=== PATIENT | female | born 1985 | race Caucasian/White ===

== ENCOUNTER → 2017-07-04 | Outpatient (CLI) | payer BC ==
[2017-07-04 10:37] LABS: PROGESTERONE < 0.2 NG/ML
[2017-07-04 10:38] LABS: ESTRADIOL 82.5 PG/ML
== END ==
LOC: M LAB 08:13
PROVIDERS: ATTEND Obstetrics & Gynecology Reproductive Endocrinology
DX: N97.9 Female infertility, unspecified (principal)

== ENCOUNTER → 2017-07-05 | Outpatient (CLI) | payer BC ==
[2017-07-05 10:12] LABS: PROGESTERONE < 0.2 NG/ML
[2017-07-05 10:13] LABS: ESTRADIOL 95.2 PG/ML; LUTEINIZING HORMONE 2.5 mIU/mL
== END ==
LOC: M LAB 08:55
PROVIDERS: ATTEND Obstetrics & Gynecology Reproductive Endocrinology
DX: N97.9 Female infertility, unspecified (principal)

== ENCOUNTER → 2017-07-13 | Outpatient (REF) ==
[2017-07-13 10:41] LABS: ESTRADIOL 72.7 PG/ML
== END ==
LOC: M LAB REF 10:15
DX: N97.9 Female infertility, unspecified (principal)

== ENCOUNTER → 2017-07-20 | Outpatient (CLI) | payer BC ==
[2017-07-20 07:22] LABS: HCG, SERUM QUANTITATIVE < 1.0 MIU/ML
[2017-07-20 08:46] LABS: PROGESTERONE 2.6 NG/ML
== END ==
LOC: M LAB 06:25
DX: Z32.00 Encounter for pregnancy test, result unknown (principal)
CPT/HCPCS: 84702

== ENCOUNTER → 2018-07-28 | Outpatient (CLI) | payer BC ==
--- NOTE | 2018-07-28 08:01 | REP ---
Pelvic sonography: History: Infertility study. Transvaginal exam. Findings: Uterine dimensions are 7.4 x 3.3 x 4.7 cm. Endometrial stripe is 0.5. Centimeters in thickness. There are Nabothian cysts in the cervix. No focal uterine mass or free fluid is seen. The overall dimensions of the right ovary are 2.9 x 2.2 x 2.2 cm. There are 12 follicles in the right ovary ranging in size from 0.3-0.8 cm. No right ovarian follicles are seen over a centimeter in size. The left ovary measures 2.4 x 2.3 x 1.8 cm. It contains six follicles from 0.2-0.9 cm in size. No follicles are seen in the left ovary measuring more than a centimeter today. Impression: Nabothian cysts. Ovarian follicle study as above. Electronically Signed by Lisandro Sue MD 07/28/2018 07:52 A
[2018-07-28 08:12] LABS: HCG, SERUM QUANTITATIVE < 1.0 MIU/ML
[2018-07-28 10:00] LABS: PROGESTERONE 0.29 NG/ML
[2018-07-28 10:01] LABS: ESTRADIOL 42.7 PG/ML; FOLLICLE STIMULATING HORMONE 6.9 mIU/mL; LUTEINIZING HORMONE 4.2 mIU/mL
== END ==
LOC: M LAB 06:39
PROVIDERS: ATTEND Obstetrics & Gynecology Reproductive Endocrinology
DX: E28.9 Ovarian dysfunction, unspecified (principal)

== ENCOUNTER → 2018-08-02 | Outpatient (CLI) | payer BC ==
--- NOTE | 2018-08-02 08:14 | REP ---
Transvaginal pelvic sonography: History: Infertility. Findings: Uterine dimensions are normal 8.2 x 3.3 x 5.0 centimeters. It has a subseptate shape. There are multiple Nabothian cysts measuring up to 1.4 cm in diameter. The overall dimensions of the right ovary are 3.2 x 2.5 x 3.1 cm. There are three follicles in the right ovary measuring over a centimeter as follows: 1.3 x 1.1, 1.8 x 1.5, and 1.0 x 1.0 cm. In addition, the right ovary contains seven follicles ranging in size from 0.2-0.8 cm. The left ovaries dimensions are 3.4 x 2.1 x 2.3 cm. There are 10 follicles visible in the left ovary ranging in size up to 0.8 cm. No larger follicle is seen in the left ovary today. Impression: Ovarian follicle study as above. Electronically Signed by Lisandro Sue MD 08/02/2018 08:06 A
[2018-08-02 09:49] LABS: ESTRADIOL 76.1 PG/ML; LUTEINIZING HORMONE 5.2 mIU/mL; PROGESTERONE 0.23 NG/ML
== END ==
LOC: M RAD 07:08
PROVIDERS: ATTEND Obstetrics & Gynecology Reproductive Endocrinology
DX: E28.9 Ovarian dysfunction, unspecified (principal)

== ENCOUNTER → 2018-08-11 | Outpatient (CLI) | payer BC ==
[2018-08-11 08:42] LABS: THYROID STIMULATING HORMONE 1.85 uIU/ML (0.358-3.740)
[2018-08-11 10:03] LABS: ESTRADIOL 37.5 PG/ML; PROGESTERONE 13.26 NG/ML
== END ==
LOC: M LAB 07:13
PROVIDERS: ATTEND Obstetrics & Gynecology Reproductive Endocrinology
DX: E28.9 Ovarian dysfunction, unspecified (principal)

== ENCOUNTER → 2018-08-21 | Outpatient (CLI) | payer BC ==
[2018-08-21 08:32] LABS: HCG, SERUM QUANTITATIVE < 1.0 MIU/ML
[2018-08-21 09:33] LABS: PROGESTERONE 0.46 NG/ML
== END ==
LOC: M LAB 07:52
PROVIDERS: ATTEND Obstetrics & Gynecology Reproductive Endocrinology
DX: Z32.00 Encounter for pregnancy test, result unknown (principal)

== ENCOUNTER → 2018-08-22 | Outpatient (CLI) | payer BC ==
[2018-08-22 10:10] LABS: BASO # 0.1 10^3/uL (0.0-0.2); BASO % 0.8 % (0.0-1.0); EOS # 0.7 10^3/uL (0.0-0.50); EOS % 8.4 % (0.0-3.0); HEMATOCRIT 34.9 % (36.0-47.0); HEMOGLOBIN 10.2 g/dl (12.0-15.5); LYMPH # 1.9 10^3/uL (1.5-4.5); LYMPH % 22.3 % (24.0-44.0); MEAN CORPUSCULAR HEMOGLOBIN 20.6 pg (27.0-33.0); MEAN CORPUSCULAR HGB CONC 29.2 g/dl (32.0-36.5); MEAN CORPUSCULAR VOLUME 70.4 fl (80.0-96.0); MONO # 0.7 10^3/uL (0.0-0.8); MONO % 7.7 % (0.0-5.0); NEUTROPHILS # 5.2 10^3/uL (1.8-7.7); NEUTROPHILS % 60.1 % (36.0-66.0); PLATELET COUNT, AUTOMATED 292 10^3/uL (150-450); RED BLOOD COUNT 4.96 10^6/uL (4.00-5.40); WHITE BLOOD COUNT 8.7 10^3/uL (4.0-10.0)
[2018-08-22 10:33] LABS: PERCENT SATURATION 3.7 % (13.2-45.0)
[2018-08-22 11:50] LABS: TOTAL 25(OH) VITAMIN D 16.9 NG/ML (30.0-100.0)
== END ==
LOC: M LAB 08:46
PROVIDERS: ATTEND Physician Assistant
DX: Z00.00 Encounter for general adult medical examination without abnormal findings (principal)

== ENCOUNTER → 2018-08-30 | Outpatient (CLI) | payer BC ==
--- NOTE | 2018-08-30 08:28 | REP ---
Endovaginal pelvic ultrasound for ovarian follicle assessment: Right ovary: There is one follicle greater than 10 mm measuring 11.1 x 7.9. Additionally, there are 11 follicles measuring 3.1-7.4 mm. Right ovary measures 3.2 x 2.1 by 2.7 cm. Left ovary: There are three follicles greater than 10 mm measurin.7 by 15.5 mm. 17.1 x 14.1 mm. 16.6 x 12.8 mm. Additionally, there are four follicles measuring 4.3-6.3 mm. Left ovary measures 3.9 x 2.5 x 3.3 mm. The endometrial stripe has a trilaminar appearance and measures 12.5 mm thickness. The uterus is anteverted and normal size measuring 8.2 x 3.6 x 4.7 cm. A cervical Nabothian cyst is incidentally identified. Electronically Signed by Benny Flores MD 08/30/2018 08:20 A
[2018-08-30 09:15] LABS: ESTRADIOL 101.1 PG/ML; LUTEINIZING HORMONE 4.3 mIU/mL; PROGESTERONE 0.27 NG/ML
== END ==
LOC: M RAD 06:59
PROVIDERS: ATTEND Obstetrics & Gynecology Reproductive Endocrinology
DX: N85.4 Malposition of uterus (principal); N88.8 Other specified noninflammatory disorders of cervix uteri

== ENCOUNTER → 2018-09-01 | Outpatient (CLI) | payer BC ==
[2018-09-01 10:15] LABS: ESTRADIOL 254.6 PG/ML; LUTEINIZING HORMONE 8.8 mIU/mL; PROGESTERONE 0.29 NG/ML
== END ==
LOC: M LAB 07:52
PROVIDERS: ATTEND Obstetrics & Gynecology Reproductive Endocrinology
DX: E28.9 Ovarian dysfunction, unspecified (principal)

== ENCOUNTER → 2018-09-08 | Outpatient (CLI) | payer BC ==
[2018-09-08 07:32] LABS: THYROID STIMULATING HORMONE 1.49 uIU/ML (0.358-3.740)
[2018-09-08 11:03] LABS: ESTRADIOL 86.2 PG/ML; PROGESTERONE 11.33 NG/ML
== END ==
LOC: M LAB 06:21
PROVIDERS: ATTEND Obstetrics & Gynecology Reproductive Endocrinology
DX: E28.9 Ovarian dysfunction, unspecified (principal)

== ENCOUNTER → 2018-09-16 | Outpatient (CLI) | payer BC ==
[2018-09-16 09:23] LABS: HCG, SERUM QUANTITATIVE < 1.0 MIU/ML
[2018-09-16 09:57] LABS: PROGESTERONE 0.36 NG/ML
== END ==
LOC: M LAB 08:35
PROVIDERS: ATTEND Obstetrics & Gynecology Reproductive Endocrinology
DX: E28.9 Ovarian dysfunction, unspecified (principal)

== ENCOUNTER → 2019-01-16 | Outpatient (CLI) | payer BC ==
[2019-01-16 08:02] LABS: HEMATOCRIT 38.9 % (36.0-47.0); HEMOGLOBIN 11.6 g/dl (12.0-15.5); MEAN CORPUSCULAR HEMOGLOBIN 23.1 pg (27.0-33.0); MEAN CORPUSCULAR HGB CONC 29.8 g/dl (32.0-36.5); MEAN CORPUSCULAR VOLUME 77.3 fl (80.0-96.0); PLATELET COUNT, AUTOMATED 250 10^3/uL (150-450); RED BLOOD COUNT 5.03 10^6/uL (4.00-5.40); WHITE BLOOD COUNT 10.8 10^3/uL (4.0-10.0)
[2019-01-16 08:30] LABS: BLOOD UREA NITROGEN 11 MG/DL (7-18); CALCIUM LEVEL 8.9 MG/DL (8.5-10.1); CARBON DIOXIDE LEVEL 24 MEQ/L (21-32); CHLORIDE LEVEL 106 MEQ/L (98-107); CREATININE FOR GFR 1.04 MG/DL (0.55-1.30); GLOMERULAR FILTRATION RATE > 60.0 (>60); GLUCOSE, FASTING 68 MG/DL (70-100); POTASSIUM SERUM 3.7 MEQ/L (3.5-5.1); SODIUM LEVEL 139 MEQ/L (136-145)
== END ==
LOC: M LAB 07:03
PROVIDERS: ATTEND Podiatrist Foot & Ankle Surgery
DX: Z01.818 Encounter for other preprocedural examination (principal)

== ENCOUNTER → 2019-01-16 | Outpatient (CLI) | payer BC ==
[2019-01-16 08:02] LABS: BASO # 0.1 10^3/uL (0.0-0.2); BASO % 0.7 % (0.0-1.0); EOS # 0.9 10^3/uL (0.0-0.50); EOS % 8.9 % (0.0-3.0); HEMATOCRIT 38.6 % (36.0-47.0); HEMOGLOBIN 11.6 g/dl (12.0-15.5); LYMPH # 1.8 10^3/uL (1.5-4.5); LYMPH % 17.2 % (24.0-44.0); MEAN CORPUSCULAR HEMOGLOBIN 23.2 pg (27.0-33.0); MEAN CORPUSCULAR HGB CONC 30.1 g/dl (32.0-36.5); MEAN CORPUSCULAR VOLUME 77.4 fl (80.0-96.0); MONO # 0.9 10^3/uL (0.0-0.8); MONO % 8.7 % (0.0-5.0); NEUTROPHILS # 6.5 10^3/uL (1.8-7.7); NEUTROPHILS % 64.1 % (36.0-66.0); PLATELET COUNT, AUTOMATED 248 10^3/uL (150-450); RED BLOOD COUNT 4.99 10^6/uL (4.00-5.40); WHITE BLOOD COUNT 10.2 10^3/uL (4.0-10.0)
[2019-01-16 08:35] LABS: ALBUMIN 3.6 GM/DL (3.2-5.2); ALT/SGPT 22 U/L (12-78); BILIRUBIN,TOTAL 0.5 MG/DL (0.2-1.0); BLOOD UREA NITROGEN 11 MG/DL (7-18); CALCIUM LEVEL 8.9 MG/DL (8.5-10.1); CARBON DIOXIDE LEVEL 27 MEQ/L (21-32); CHLORIDE LEVEL 106 MEQ/L (98-107); CREATININE FOR GFR 1.03 MG/DL (0.55-1.30); FERRITIN 15 NG/ML (8-252); GLOMERULAR FILTRATION RATE > 60.0 (>60); GLUCOSE, FASTING 66 MG/DL (70-100); IRON (FE) 41 UG/DL (50-170); PERCENT SATURATION 8.5 % (13.2-45.0); POTASSIUM SERUM 3.8 MEQ/L (3.5-5.1); SODIUM LEVEL 139 MEQ/L (136-145); TOTAL IRON BINDING CAPACITY 484 UG/DL (250-450); TOTAL PROTEIN 7.3 GM/DL (6.4-8.2)
[2019-01-16 09:01] LABS: TOTAL 25(OH) VITAMIN D 21.6 NG/ML (30.0-100.0)
[2019-01-16 09:22] LABS: VITAMIN B12 LEVEL > 2000 PG/ML (247-911)
== END ==
LOC: M LAB 07:01
PROVIDERS: ATTEND Family Medicine
DX: E61.1 Iron deficiency (principal); D51.9 Vitamin B12 deficiency anemia, unspecified; E55.9 Vitamin D deficiency, unspecified

== ENCOUNTER 2019-06-05 08:52 | Day surgery (SDC) | payer BC ==
[~2019-06-05] VITALS: Ht 182.9 cm; Wt 126.6 kg
[~2019-06-05 08:52] MED LIST: CYAN1000VL SQ; HYDR-643 PO; IRON65TA2 PO; LR 1,000 ML IV ONE; VITA500045 PO; ceFAZolin SOD 2 GM in IV 1 EA IV ONE
[2019-06-05] MEDS ORDERED: BUPIVACAINE HCL 0.5% 30 ML VIAL As Ordered ONE (15:09)
[2019-06-05] MEDS ORDERED: dexameTHASONE 4 MG/ML 1ML VIAL (J1100) As Ordered ONE ×2 (15:09→16:30)
[2019-06-05] MEDS ORDERED: LIDOCAINE 1% MDV 20ML VIAL As Ordered ONE (15:09)
[2019-06-05] MEDS ORDERED: ONDANSETRON 4MG/2ML VIAL (J2405) As Ordered ONE (16:29)
[2019-06-05] MEDS ORDERED: LIDOCAINE 2% INJ 100 MG/5 ML SDV (FOR ANES.) As Ordered ONE (16:29)
[2019-06-05] MEDS ORDERED: PROPOFOL 500 MG/50 ML VIAL As Ordered ONE ×2 (16:30→17:17)
[2019-06-05] MEDS ORDERED: fentaNYL 100 MCG/2 ML INJECTION (J3010) As Ordered ONE (16:30)
[2019-06-05] MEDS ORDERED: MIDAZOLAM INJ 2 MG/2 ML VIAL (J2250) As Ordered ONE (16:30)
[2019-06-05] MEDS ORDERED: KETAMINE HCL 200 MG/20 ML VIAL As Ordered ONE (16:48)
[2019-06-05] MEDS ORDERED: ceFAZolin 1GM INJ (J0690 PER 500MG) As Ordered ONE (17:00)
[2019-06-05 18:30] VITALS: BP 116/64
--- NOTE | 2019-06-06 12:33 | RO ---
DATE OF PROCEDURE: 06/05/2019 PREPROCEDURE DIAGNOSIS: Left foot 4th and 5th metatarsal deformity. POSTPROCEDURE DIAGNOSIS: Left foot 4th and 5th metatarsal deformity. PROCEDURE: Left 4th and 5th metatarsal shortening osteotomy. SURGEON: Dr. Ryan Yoon CLINCHING MACHINE OPERATOR: None. ANESTHESIA: Monitored anesthesia care. Preoperative injection of 17 mL of 1:1 mixture of lidocaine plain and 0.5% Marcaine plain. ESTIMATED BLOOD LOSS Minimal. MATERIALS: Arthrex 2.5 headless screws times two, #3-0 and #4-0 Vicryl, #4-0 nylon. INJECTABLES: 7 mL of 1% lidocaine plain and 1 mL Decadron 4 mg/L. COMPLICATIONS: None. CONDITION: Stable. Isabel Chambers is a 33-year-old female who presents to [facility] with complaints of painful metatarsal deformity to her left foot. She presents today for surgical correction. The patient's site and side were identified and marked in the preoperative holding area. Consent was reviewed and obtained. All risks, complications and, alternatives to the procedure were explained to the patient in detail. All questions were answered. DESCRIPTION OF PROCEDURE: Patient was brought to the operating room and placed on the operating table in supine position. Monitored anesthesia care was delivered by the anesthesia team. Preoperative injection of 17 mL of 1:1 mixture of 1% lidocaine plain and 0.5% Marcaine plain was injected to the left foot. The left foot was prepped and draped in a normal sterile fashion. A tourniquet was applied to the left ankle inflated at 225 mmHg. A dorsal incision was drawn over the 4th and 5th metatarsal and carried through with a #15 blade. Dissection was carried down to the 4th and 5th metatarsophalangeal joints were identified. Linear capsulotomy was performed exposing the metatarsal head using a McGlamry elevator the medial, lateral and planar structures were released. Then an osteotomy was performed in the metatarsal head transposing it proximally. These were each fixated with an Arthrex 2.5 headless screw. The bone ledge was resected with rongeur and smoothed with a rasp. It was irrigated with normal saline. Capsular repair was performed with #3-0 Vicryl, subcutaneous closure with #4-0, and skin closure with #4-0 nylon. 1 mL Decadron was injected and an additional 7 mL of 1% lidocaine plain was used during the procedure. Steri-Strips were applied, tourniquet was deflated. Patient was brought to the postanesthesia care unit (PACU) with vital signs stable, neurovascular status intact. She will be partial weightbearing to the left foot. She will followup in the office in 2 days.
== END 2019-06-05 18:40 | disposition home or self-care (01) ==
LOC: M SDC 08:52
PROVIDERS: ATTEND Podiatrist Foot & Ankle Surgery
DX: M21.6X2 Other acquired deformities of left foot (principal); D64.9 Anemia, unspecified; G47.30 Sleep apnea, unspecified; F17.218 Nicotine dependence, cigarettes, with other nicotine-induced disorders; Z79.899 Other long term (current) drug therapy; Z98.84 Bariatric surgery status; Z88.2 Allergy status to sulfonamides; Z88.5 Allergy status to narcotic agent
CPT/HCPCS: 28308; 81025; 88300; C1713; J0690; J1100; J2250; J2405; J3010

== ENCOUNTER → 2020-04-22 | Outpatient (CLI) | payer BC ==
[~2020-04-22] MED LIST changes: -LR 1,000 ML IV ONE; -ceFAZolin SOD 2 GM in IV 1 EA IV ONE
--- NOTE | 2020-04-28 14:21 | REP ---
PELVIC SONOGRAPHY: HISTORY: Ovarian dysfunction. Transvaginal scanning. Fertility study. FINDINGS: Uterine dimensions are normal at 7.6 x 3.8 x 5.0cm. There are nabothian cysts in the cervix. Endometrial stripe is 0.6cm thick. No focal uterine mass is seen. No free fluid is noted in the cul-de-sac. Overall dimensions of the right ovary today are 2.8 x 1.6 x 2.3cm. There are no follicles in the right ovary measuring greater than a centimeter. There are three follicles ranging in size from 0.5-0.9cm in the right ovary. The left ovary has overall dimension of 2.7 x 1.7 x 2.0cm. There are no follicles in the left ovary measuring greater than a centimeter. There are two follicles measuring 0.5 and 0.9cm in the left ovary. IMPRESSION: Ovarian follicle study as above. MTDD
== END ==
LOC: M WHC 07:30
PROVIDERS: ATTEND Obstetrics & Gynecology Reproductive Endocrinology
DX: E28.9 Ovarian dysfunction, unspecified (principal)

== ENCOUNTER → 2020-04-22 | Outpatient (CLI) | payer BC ==
[2020-04-22 12:54] LABS: ESTRADIOL 51.9 PG/ML; FOLLICLE STIMULATING HORMONE 7.4 mIU/mL; HCG, SERUM QUANTITATIVE < 1.0 MIU/ML; LUTEINIZING HORMONE 4.2 mIU/mL; PROGESTERONE 0.21 NG/ML; THYROID STIMULATING HORMONE 0.932 uIU/ML (0.358-3.740)
== END ==
LOC: M PLALAB 08:05
PROVIDERS: ATTEND Obstetrics & Gynecology Reproductive Endocrinology
DX: E28.9 Ovarian dysfunction, unspecified (principal)

== ENCOUNTER → 2020-04-28 | Outpatient (CLI) | payer BC ==
[2020-04-28 10:42] LABS: HEMATOCRIT 37.7 % (36.0-47.0); HEMOGLOBIN 11.3 g/dl (12.0-15.5); MEAN CORPUSCULAR HEMOGLOBIN 23.1 pg (27.0-33.0); MEAN CORPUSCULAR VOLUME 76.9 fl (80.0-96.0); PLATELET COUNT, AUTOMATED 269 10^3/uL (150-450); WHITE BLOOD COUNT 6.6 10^3/uL (4.0-10.0)
[2020-04-28 10:58] LABS: ESTRADIOL 114.8 PG/ML; LUTEINIZING HORMONE 2.6 mIU/mL; PROGESTERONE 0.21 NG/ML
[2020-04-28 11:12] LABS: FERRITIN 33 NG/ML (8-252); IRON (FE) 27 UG/DL (50-170); VITAMIN B12 LEVEL 686 PG/ML (247-911)
== END ==
LOC: M PLALAB 08:09
PROVIDERS: ATTEND Internal Medicine
DX: E61.1 Iron deficiency (principal); D51.9 Vitamin B12 deficiency anemia, unspecified; E28.9 Ovarian dysfunction, unspecified

== ENCOUNTER → 2020-04-28 | Outpatient (CLI) | payer BC | LOC: M WHC 07:08 | PROVIDERS: ATTEND Obstetrics & Gynecology Reproductive Endocrinology | DX: E28.9 Ovarian dysfunction, unspecified (principal) ==

== ENCOUNTER → 2020-04-30 | Outpatient (CLI) | payer BC ==
[2020-04-30 11:13] LABS: LUTEINIZING HORMONE 2.4 mIU/mL; PROGESTERONE 0.6 NG/ML
== END ==
LOC: M PLALAB 08:52
PROVIDERS: ATTEND Obstetrics & Gynecology Reproductive Endocrinology
DX: E28.9 Ovarian dysfunction, unspecified (principal)

== ENCOUNTER → 2020-04-30 | Outpatient (CLI) | payer BC ==
--- NOTE | 2020-05-01 07:35 | REP ---
TRANSVAGINAL PELVIC ULTRASOUND CLINICAL: Follicular study. Ovarian dysfunction. TECHNIQUE: Transvaginal ultrasound examination. FINDINGS: Anteverted uterus measures 8.2 x 3.7 x 4.9 cm and again demonstrates multiple nabothian cysts measuring up to roughly 9 mm. The endometrial complex measures 9 mm thickness and demonstrates normal trilaminar appearance. No endocervical fluid is identified. Right ovary measures 3.5 x 2.3 x 3.2 cm and includes 2.0 cm follicle along with four subcentimeter follicles measuring 5-9 mm. Left ovary measures 3.0 x 2.4 x 3.2 cm and includes 1.5 cm, 1.5 cm, 1.9 cm, 1.2 cm, and 1.1 cm follicles along with single 6 mm follicle. IMPRESSION: Follicular study with uterus and ovaries as described above. PELVIC ULTRASOUND: 04/30/20. CLINICAL: Infertility. TECHNIQUE: Transabdominal pelvic ultrasound. FINDINGS: Anteverted uterus measures 8.2 x 3.7 x 4.9cm. The endometrial complex measures 12mm thickness and demonstrates normal trilaminar appearance. The right ovary measures 3.9 x 2.5 x 3.1cm (RI 0.52) and includes 23mm, 14mm, and 10mm follicles. The left ovary measures 3.7 x 2.4 x 3.2cm (RI 0.45) and includes 21mm, 13mm, 18, 16mm, 14mm, and 14mm follicles. IMPRESSION: 1. Normal appearance to the uterus. 2. Bilateral ovarian follicles as noted above. MTDD
== END ==
LOC: M WHC 08:24
PROVIDERS: ATTEND Obstetrics & Gynecology Reproductive Endocrinology
DX: E28.9 Ovarian dysfunction, unspecified (principal)

== ENCOUNTER → 2020-05-02 | Outpatient (CLI) | payer BC ==
--- NOTE | 2020-05-02 08:30 | REPVR ---
PROCEDURE INFORMATION: Exam: US Pelvis, Transvaginal Exam date and time: 05/02/2020 7:52 AM Age: 34 years old Clinical indication: Screening exam; Follicle study; Additional info: Ovarian dysfunction TECHNIQUE: Imaging protocol: Real-time transvaginal pelvic ultrasound with image documentation. Transvaginal imaging was used for better evaluation of the endometrium, adnexa, and/or cervix. COMPARISON: PELVIS NON-OB COMPLETE US 04/30/2020 8:37 AM FINDINGS: Uterus/cervix: Uterus measures 8.7 x 3.6 x 5.1 cm. No myometrial mass. Endometrium measures 1.3 cm in thickness and is unchanged with a triple line pattern. Nabothian cysts noted in the region of the cervix. Right adnexa: Right ovary measures 4.2 x 2.9 x 3.1 cm. There are 4 follicles larger than 1 cm measuring 1.1 x 0.9 cm, 2.5 x 2.1 cm, 1.6 x 1.2 cm and 1.2 x 0.9 cm. There are 5 subcentimeter follicles measuring in the 5-6 mm range. Left adnexa: Left ovary measures 5.1 x 3.1 x 4.6 cm. There are 6 follicles larger than 1 cm measuring 1.2 x 0.9 cm, 1.2 x 1.4 cm, 1.8 x 2.2 cm, 2.1 x 1.5 cm, 1.6 x 1.0 cm and 1.7 x 1.1 cm. There is 1 subcentimeter follicle measuring 5 mm. Intraperitoneal space: No free fluid. IMPRESSION: 1. Endometrium measures 1.3 cm in thickness with a triple line pattern. 2. Multiple bilateral ovarian follicles with the right ovary containing 4 follicles greater than 1 cm and the left ovary containing 6 follicles greater than 1 cm. Electronically signed by: Hung Gaviria On 05/02/2020 08:30:27 AM
[2020-05-02 09:16] LABS: LUTEINIZING HORMONE 3.5 mIU/mL; PROGESTERONE 0.51 NG/ML
== END ==
LOC: M RAD 07:29
PROVIDERS: ATTEND Obstetrics & Gynecology Reproductive Endocrinology
DX: E28.9 Ovarian dysfunction, unspecified (principal)

== ENCOUNTER → 2020-05-14 | Outpatient (CLI) | payer BC ==
[2020-05-14 11:45] LABS: ESTRADIOL 147.4 PG/ML; PROGESTERONE 16.02 NG/ML
== END ==
LOC: M LAB 08:14
PROVIDERS: ATTEND Obstetrics & Gynecology Reproductive Endocrinology
DX: E28.9 Ovarian dysfunction, unspecified (principal)

== ENCOUNTER → 2020-05-19 | Outpatient (CLI) | payer BC ==
[2020-05-19 09:33] LABS: HCG, SERUM QUANTITATIVE < 1.0 MIU/ML
[2020-05-19 10:48] LABS: PROGESTERONE 30.46 NG/ML
== END ==
LOC: M LAB 08:36
PROVIDERS: ATTEND Obstetrics & Gynecology Reproductive Endocrinology
DX: E28.9 Ovarian dysfunction, unspecified (principal)

== ENCOUNTER → 2020-05-26 | Outpatient (CLI) | payer BC ==
[2020-05-26 11:05] LABS: ESTRADIOL 51.7 PG/ML; HCG, SERUM QUANTITATIVE < 1.0 MIU/ML; LUTEINIZING HORMONE 4.8 mIU/mL; PROGESTERONE 0.37 NG/ML
== END ==
LOC: M PLALAB 08:02
PROVIDERS: ATTEND Obstetrics & Gynecology Reproductive Endocrinology
DX: E28.9 Ovarian dysfunction, unspecified (principal)

== ENCOUNTER → 2020-05-26 | Outpatient (CLI) | payer BC ==
--- NOTE | 2020-05-26 09:00 | REP ---
INDICATION: FERTILITY TREATMENTS. COMPARISON: 05/02/2020 TECHNIQUE: Transabdominal endovaginal probe pelvic ultrasound FINDINGS: Uterus: It measures 8 x 5.2 x 3.7 cm and is anteverted. With a normal endometrial stripe with a thickness of 6 mm and no fluid in the endometrial cavity or endocervical canal. Some nabothian cysts are again identified. No contour abnormality or uterine mass. Right ovary: Measures 2.5 x 2.5 x 2.3 cm. One follicle over a cm 11 x 8 mm. There are a few small subcentimeter follicles. No adjacent fluid. Left ovary: Measures 2.8 x 2 x 2 cm. Two follicles over a cm at 11 x 5 mm and 10 x 6 mm. A couple of a small subcentimeter follicles. No adjacent fluid. Doppler tracing shows resistive index 0.61 on the right and 0.50 on the left with normal color flow to both ovaries. IMPRESSION: 1. Endometrium it 6 mm thickness with no fluid in the endometrial cavity. Uterus anteverted normal in size. 2. One follicle in the right ovary over a cm 11 x 8 mm and 2 follicles in the left ovary 11 x 5 in 10 x 6 mm. No other significant finding. <Electronically signed by Cristian Sheth > 05/26/20 0856
== END ==
LOC: M WHC 08:10
PROVIDERS: ATTEND Obstetrics & Gynecology Reproductive Endocrinology
DX: E28.9 Ovarian dysfunction, unspecified (principal)

== ENCOUNTER → 2020-05-30 | Outpatient (CLI) | payer BC ==
--- NOTE | 2020-05-30 08:28 | REP ---
INDICATION: INFERTILITY TREATMENTS. COMPARISON: 05/26/2020 TECHNIQUE: Endovaginal probe pelvic ultrasound for fertility evaluation FINDINGS: The uterus is anteverted and measures 6.2 x 3.9 x 4.7 cm. There are nabothian cysts in the cervix. Today's study there is some fluid in the endometrial cavity. The anterior endometrial wall is 3.1 mm thick in the posterior wall 3 mm thick. Uterine contour and echogenicity were normal. No mass. No free fluid in the cul-de-sac. The right ovary is 3.4 x 2 x 3.1 cm there is a follicle at 10 x 9 mm size. There are additional 7 follicles in the 5-9 mm range. The left ovary is 3.2 x 2.2 x 2 cm. There are 2 follicles over a cm at 1.4 x 1.4 cm and 1.2 x 0.8 cm. An additional 4 follicles are seen in the 5-9 mm range. IMPRESSION: 1. Small amount of fluid in the endometrial cavity as described. Endometrial thickness 3.1 mm anteriorly, 3 mm posteriorly. 2. Right ovary with 1 follicle at 1 x 0.9 cm and left ovary has 2 follicles over a cm 1.4 and 1.2 cm in greatest diameters respectively. 3. No pelvic free fluid <Electronically signed by Cristian Sheth > 05/30/20 0855
== END ==
LOC: M WHC 07:48
PROVIDERS: ATTEND Obstetrics & Gynecology Reproductive Endocrinology
DX: E28.9 Ovarian dysfunction, unspecified (principal)

== ENCOUNTER → 2020-05-30 | Outpatient (CLI) | payer BC ==
[2020-05-30 11:34] LABS: ESTRADIOL 84.2 PG/ML; LUTEINIZING HORMONE 6.3 mIU/mL; PROGESTERONE 0.79 NG/ML
== END ==
LOC: M PLALAB 08:13
PROVIDERS: ATTEND Obstetrics & Gynecology Reproductive Endocrinology
DX: E28.9 Ovarian dysfunction, unspecified (principal)

== ENCOUNTER → 2020-06-02 | Outpatient (CLI) | payer BC ==
[2020-06-02 11:43] LABS: ESTRADIOL 190.1 PG/ML; LUTEINIZING HORMONE 1.5 mIU/mL; PROGESTERONE 1.03 NG/ML
== END ==
LOC: M PLALAB 08:25
PROVIDERS: ATTEND Obstetrics & Gynecology Reproductive Endocrinology
DX: E28.9 Ovarian dysfunction, unspecified (principal)

== ENCOUNTER → 2020-06-02 | Outpatient (CLI) | payer BC ==
--- NOTE | 2020-06-02 08:55 | REP ---
INDICATION: INFERTILITY TREATMENTS COMPARISON: None. TECHNIQUE: Transvaginal ultrasound examination with color Doppler evaluation of the ovaries.. FINDINGS: Bladder is collapsed. Normal anteverted uterus measures 7.6 x 4.6 x 3.9 cm. The endometrial complex measures 11 mm thickness. Normal trilaminar appearance noted. Nabothian cysts identified measuring up to approximately 9 mm Right ovary measures 3.3 x 3.6 x 1.7 cm (RI 0.47) with 5 follicles measuring between 10 mm and 14 mm along with approximately 4 subcentimeter follicles measuring between 5 and 9 mm. Left ovary measures 3.9 x 3.9 x 2.2 cm and includes 5 follicles measuring between 10 mm and 26 mm along with approximately 5 subcentimeter follicles measuring between 3 and 9 mm. IMPRESSION: Bilateral ovarian follicles as noted above. <Electronically signed by Hung Orellana > 06/02/20 0801
== END ==
LOC: M WHC 07:35
PROVIDERS: ATTEND Obstetrics & Gynecology Reproductive Endocrinology
DX: E28.9 Ovarian dysfunction, unspecified (principal); N83.01 Follicular cyst of right ovary; N83.02 Follicular cyst of left ovary

== ENCOUNTER → 2020-06-04 | Outpatient (CLI) | payer BC ==
[2020-06-04 10:52] LABS: ESTRADIOL 293.2 PG/ML; LUTEINIZING HORMONE 2.5 mIU/mL; PROGESTERONE 2.06 NG/ML
== END ==
LOC: M PLALAB 08:43
PROVIDERS: ATTEND Obstetrics & Gynecology Reproductive Endocrinology
DX: E28.9 Ovarian dysfunction, unspecified (principal)

== ENCOUNTER → 2020-06-04 | Outpatient (CLI) | payer BC ==
--- NOTE | 2020-06-04 09:58 | REP ---
INDICATION: INFERTILITY TREATMENTS - STAT. COMPARISON: 06/02/2020. TECHNIQUE: Transvaginal scanning performed. FINDINGS: Uterine dimensions are 8.7 x 5.1 x 3.8 cm. Endometrial echo is 12 mm in AP dimension and centrally placed. The endometrium has a trilaminar appearance. Multiple nabothian cysts are seen in the region of the cervix. The right ovary has dimensions of 3.9 x 3.1 x 2.3 cm. Four follicles are visualized which are greater than 1 cm in maximum diameter, measuring 17 x 16 mm, 13 x 17 mm, 18 x 13 mm and 11 x 5 mm. Another follicle demonstrates a thin septation and measures 10 x 8 mm. Approximately 4 other subcentimeter follicles range in diameter 4-7 mm. The left ovary dimensions are 4.3 x 3.5 x 2.4 cm. Five dominant follicles are visualized, measuring 19 x 16, 14 x 13, 16 x 10, 22 x 10 and 28 x 20 mm. Approximately 5 other subcentimeter follicles range in size 5-8 mm. There is no adnexal mass identified. No free fluid is seen in the cul-de-sac. IMPRESSION: Ovarian follicles as above. <Electronically signed by Benny Nesbitt > 06/04/20 0954
== END ==
LOC: M WHC 08:49
PROVIDERS: ATTEND Obstetrics & Gynecology Reproductive Endocrinology
DX: E28.9 Ovarian dysfunction, unspecified (principal); N83.01 Follicular cyst of right ovary; N83.02 Follicular cyst of left ovary

== ENCOUNTER → 2020-06-17 | Outpatient (CLI) | payer BC ==
[2020-06-17 09:37] LABS: ESTRADIOL 78.8 PG/ML; PROGESTERONE 25.21 NG/ML
== END ==
LOC: M LAB 08:09
PROVIDERS: ATTEND Obstetrics & Gynecology Reproductive Endocrinology
DX: E28.9 Ovarian dysfunction, unspecified (principal)

== ENCOUNTER → 2020-06-23 | Outpatient (CLI) | payer BC ==
[2020-06-23 11:34] LABS: PROGESTERONE 50.13 NG/ML
== END ==
LOC: M PLALAB 08:02
PROVIDERS: ATTEND Obstetrics & Gynecology Reproductive Endocrinology
DX: E28.9 Ovarian dysfunction, unspecified (principal)

== ENCOUNTER → 2020-06-25 | Outpatient (REF) | LOC: M LAB REF 11:57 | PROVIDERS: ATTEND Obstetrics & Gynecology Reproductive Endocrinology | DX: Z00.00 Encounter for general adult medical examination without abnormal findings (principal) ==

== ENCOUNTER → 2020-12-10 | Outpatient (REF) | payer BC ==
[2020-12-10 18:05] LABS: THYROID STIMULATING HORMONE 1.4 uIU/ML (0.358-3.740)
== END ==
LOC: M LAB REF 16:47
PROVIDERS: ATTEND Obstetrics & Gynecology
DX: Z36.89 Encounter for other specified antenatal screening (principal)

== ENCOUNTER → 2021-01-29 | Outpatient (REF) | payer BC | LOC: M LAB REF 16:45 | PROVIDERS: ATTEND Obstetrics & Gynecology | DX: Z36.89 Encounter for other specified antenatal screening (principal) ==

== ENCOUNTER → 2022-02-01 | Outpatient (CLI) | payer OTHER ==
[2022-02-01 10:31] LABS: HCG, SERUM QUANTITATIVE < 1.0 MIU/ML
[2022-02-01 11:08] LABS: PROGESTERONE 0.21 NG/ML
== END ==
LOC: M LAB 09:26
PROVIDERS: ATTEND Obstetrics & Gynecology Reproductive Endocrinology
DX: Z32.01 Encounter for pregnancy test, result positive (principal)

== ENCOUNTER → 2022-02-18 | Outpatient (CLI) | payer OTHER | LOC: M WHC 06:31 | PROVIDERS: ATTEND Obstetrics & Gynecology Reproductive Endocrinology | DX: N83.291 Other ovarian cyst, right side (principal); N88.8 Other specified noninflammatory disorders of cervix uteri ==

== ENCOUNTER → 2022-02-18 | Outpatient (CLI) | payer OTHER ==
[2022-02-18 10:46] LABS: HCG, SERUM QUANTITATIVE < 1.0 MIU/ML
[2022-02-18 12:07] LABS: PROGESTERONE 0.21 NG/ML
[2022-02-18 12:08] LABS: ESTRADIOL 48.5 PG/ML; FOLLICLE STIMULATING HORMONE 7.6 mIU/mL; LUTEINIZING HORMONE 3.8 mIU/mL
== END ==
LOC: M PLALAB 07:22
PROVIDERS: ATTEND Obstetrics & Gynecology Reproductive Endocrinology
DX: Z31.83 Encounter for assisted reproductive fertility procedure cycle (principal)

== ENCOUNTER → 2022-02-25 | Outpatient (CLI) | payer OTHER | LOC: M WHC 07:29 | PROVIDERS: ATTEND Obstetrics & Gynecology Reproductive Endocrinology | DX: Z31.83 Encounter for assisted reproductive fertility procedure cycle (principal); N83.01 Follicular cyst of right ovary ==

== ENCOUNTER → 2022-03-08 | Outpatient (CLI) | payer OTHER ==
[2022-03-08 14:06] LABS: ESTRADIOL 110.9 PG/ML; PROGESTERONE 22.85 NG/ML
== END ==
LOC: M PLALAB 09:21
PROVIDERS: ATTEND Obstetrics & Gynecology Reproductive Endocrinology
DX: Z31.49 Encounter for other procreative investigation and testing (principal)

== ENCOUNTER → 2022-03-12 | Outpatient (CLI) | payer OTHER ==
[2022-03-12 11:58] LABS: PROGESTERONE 19.66 NG/ML
== END ==
LOC: M PLALAB 07:31
PROVIDERS: ATTEND Obstetrics & Gynecology Reproductive Endocrinology
DX: Z32.00 Encounter for pregnancy test, result unknown (principal)

== ENCOUNTER → 2022-03-15 | Outpatient (CLI) | payer OTHER ==
[2022-03-15 11:46] LABS: ESTRADIOL 183.2 PG/ML; PROGESTERONE 24.03 NG/ML; THYROID STIMULATING HORMONE 2.19 uIU/ML (0.358-3.740)
== END ==
LOC: M PLALAB 07:28
PROVIDERS: ATTEND Obstetrics & Gynecology Reproductive Endocrinology
DX: Z32.01 Encounter for pregnancy test, result positive (principal)

== ENCOUNTER → 2022-03-23 | Outpatient (CLI) | payer OTHER | LOC: M WHC 06:56 | PROVIDERS: ATTEND Obstetrics & Gynecology Reproductive Endocrinology | DX: O09.00 Supervision of pregnancy with history of infertility, unspecified trimester (principal) ==

== ENCOUNTER → 2022-03-23 | Outpatient (CLI) | payer OTHER ==
[2022-03-23 12:12] LABS: ESTRADIOL 206.3 PG/ML; PROGESTERONE 27.17 NG/ML
== END ==
LOC: M PLALAB 07:49
PROVIDERS: ATTEND Obstetrics & Gynecology Reproductive Endocrinology
DX: O09.00 Supervision of pregnancy with history of infertility, unspecified trimester (principal)

== ENCOUNTER → 2022-03-30 | Outpatient (CLI) | payer OTHER | LOC: M WHC 07:12 | PROVIDERS: ATTEND Obstetrics & Gynecology Reproductive Endocrinology | DX: Z32.01 Encounter for pregnancy test, result positive (principal); Z3A.01 Less than 8 weeks gestation of pregnancy ==

== ENCOUNTER → 2022-03-30 | Outpatient (CLI) | payer OTHER ==
[2022-03-30 11:48] LABS: PROGESTERONE 34.77 NG/ML
[2022-03-30 11:49] LABS: ESTRADIOL 192.3 PG/ML
== END ==
LOC: M PLALAB 08:17
PROVIDERS: ATTEND Obstetrics & Gynecology Reproductive Endocrinology
DX: Z32.01 Encounter for pregnancy test, result positive (principal)

== ENCOUNTER → 2022-04-06 | Outpatient (CLI) | payer OTHER | LOC: M WHC 08:33 | PROVIDERS: ATTEND Obstetrics & Gynecology Reproductive Endocrinology | DX: O09.00 Supervision of pregnancy with history of infertility, unspecified trimester (principal); Z3A.01 Less than 8 weeks gestation of pregnancy ==

== ENCOUNTER → 2022-04-06 | Outpatient (CLI) | payer OTHER ==
[2022-04-06 11:58] LABS: ESTRADIOL 197.9 PG/ML; PROGESTERONE 22.44 NG/ML
== END ==
LOC: M PLALAB 07:51
PROVIDERS: ATTEND Obstetrics & Gynecology Reproductive Endocrinology
DX: O09.00 Supervision of pregnancy with history of infertility, unspecified trimester (principal)

== ENCOUNTER → 2022-04-28 | Outpatient (REF) | payer OTHER ==
[2022-04-28 20:28] LABS: HCG, SERUM QUANTITATIVE 44445 MIU/ML; HEPATITIS B SURFACE ANTIGEN NEGATIVE (NEGATIVE); HIV 1&2 SCREEN CENTAUR NEGATIVE (NEGATIVE)
[2022-04-29 11:24] LABS: HEPATITIS C VIRUS ABY INDEX < 0.0 INDEX (<0.8)
== END ==
LOC: M LAB REF 16:44
PROVIDERS: ATTEND Obstetrics & Gynecology
DX: Z34.81 Encounter for supervision of other normal pregnancy, first trimester (principal)

== ENCOUNTER → 2022-07-07 | Outpatient (CLI) | payer OTHER | LOC: M WHC 14:56 | PROVIDERS: ATTEND Obstetrics & Gynecology | DX: O32.1XX0 Maternal care for breech presentation, not applicable or unspecified (principal); Z3A.21 21 weeks gestation of pregnancy ==

== ENCOUNTER → 2022-08-06 | Outpatient (CLI) | payer OTHER, SELFPAY | LOC: M WHC 11:10 | PROVIDERS: ATTEND Obstetrics & Gynecology | DX: Z34.82 Encounter for supervision of other normal pregnancy, second trimester (principal); Z3A.26 26 weeks gestation of pregnancy ==

== ENCOUNTER → 2022-10-20 | Outpatient (REF) | payer OTHER | LOC: M LAB REF 12:32 | PROVIDERS: ATTEND Obstetrics & Gynecology | DX: Z36.85 Encounter for antenatal screening for Streptococcus B (principal) ==

== ENCOUNTER → 2023-05-10 | Outpatient (CLI) | payer OTHER | LOC: M WUC 12:32 | PROVIDERS: ATTEND Nurse Practitioner Family | DX: M25.531 Pain in right wrist (principal) ==

== ENCOUNTER 2025-03-13 07:38 | Day surgery (SDC) | payer OTHER ==
[~2025-03-13] VITALS: Ht 182.9 cm; Wt 120.4 kg
[~2025-03-13 07:38] MED LIST changes: +BUSP5TA PO; +CYAN100017 INJ; +DICL-235 PO; +ERGO500029 PO; +HYDR-3363 PO; +HYDR-3713 PO; +LEXA1TAB PO; +ceFAZolin SOD 2 GM IV ONCE IV ONE; +ceFAZolin SOD 3 GM in DEXTROSE 5% (D5W) MINI-BAG PLU 1... IV ONE
[2025-03-13] MEDS: LR 1,000 ML IV SCH (08:19)
[2025-03-13] MEDS ORDERED: LIDOCAINE 1% MDV 20 ML VIAL As Ordered ONE (09:20)
[2025-03-13] MEDS ORDERED: MIDAZOLAM INJ 2 MG/2 ML VIAL As Ordered ONE (09:29)
[2025-03-13 11:27] VITALS: BP 134/77; TEMP 96.9; O2SAT 100
== END 2025-03-13 11:30 | disposition home or self-care (01) ==
LOC: M SDC 07:38
PROVIDERS: ATTEND Podiatrist Foot & Ankle Surgery
DX: M20.61 Acquired deformities of toe(s), unspecified, right foot (principal); L84 Corns and callosities; D64.9 Anemia, unspecified; F17.210 Nicotine dependence, cigarettes, uncomplicated; Z98.84 Bariatric surgery status; Z79.899 Other long term (current) drug therapy; Z88.5 Allergy status to narcotic agent; Z88.2 Allergy status to sulfonamides
CPT/HCPCS: 28112; 81025; 88300; J0665; J2250; J3010